=== PATIENT | male | born 2005 | race Caucasian/White ===

== ENCOUNTER 2023-12-19 21:52 | Emergency (ER) | payer OTHER ==
[2023-12-19] MEDS ORDERED: traMADol 50 MG Tab PO ONE (21:53)
[2023-12-19] MEDS: Diphtheria,Pertussis(Acell),Tetanus Vaccine 0.5 ML Syringe IM ONE (22:23)
[2023-12-19] MEDS: Lidocaine 2% HCl 6 ML Jel MM STA (22:24)
== END 2023-12-19 22:55 | disposition home or self-care (01) ==
LOC: FB.ED 21:52
DX: S30.810A Abrasion of lower back and pelvis, initial encounter (principal); Z23 Encounter for immunization; V89.2XXA Person injured in unspecified motor-vehicle accident, traffic, initial encounter
CPT/HCPCS: 90471; 90715; 99283-25; A9270-GY